=== PATIENT | male | born 1985 | race Hispanic/Latino ===

== ENCOUNTER 2019-05-18 05:39 | Emergency (ER) | payer OTHER ==
[2019-05-18] MEDS ORDERED: ONDANSETRON HCL 4 MG/2 ML VIAL ONE (06:09)
[2019-05-18] MEDS ORDERED: MORPHINE SULFATE 4 MG/1ML SYG ONE ×2 (06:10→07:29)
[2019-05-18] MEDS ORDERED: SODIUM CHLORIDE 0.9% 1000ML 1,000 ML IV ONE (06:10)
[2019-05-18 06:13] LABS: BASOPHILS % (AUTO) 0.6 % (0.0-5.0); EOSINOPHILS % (AUTO) 1.3 % (0.0-8.0); HEMATOCRIT 52.7 % (42-54); LYMPHOCYTES % (AUTO) 6.1 % (21.0-51.0); MEAN CORPUSCULAR HEMOGLOBIN 32.4 pg (27.0-33.0); MEAN CORPUSCULAR HGB CONC 34.5 g/dL (32.0-36.0); MEAN CORPUSCULAR VOLUME 93.9 fL (79-99); MONOCYTES % (AUTO) 6.3 % (3.0-13.0); PLATELET COUNT (AUTO) 364 K/uL (130-400); RED BLOOD CELL COUNT(AUTO) 5.61 MIL/uL (4.50-6.20); RED CELL DISTRIBUTION WIDTH 13.3 % (11.0-15.5)
[2019-05-18 06:23] LABS: POTASSIUM 3.8 mmol/L (3.5-5.1)
[2019-05-18 06:28] LABS: ALBUMIN 4.8 g/dL (3.5-5.0); BILIRUBIN,TOTAL 0.7 mg/dL (0.2-1.0); TOTAL PROTEIN, SERUM 8.3 g/dL (6.0-8.3)
[2019-05-18 06:42] LABS: WHITE BLOOD COUNT (AUTO) 31.8 K/uL (4.8-10.8)
[2019-05-18 07:13] LABS: APPEARANCE,URINE Clear (CLEAR); BILIRUBIN,URINE Negative (NEGATIVE); COLOR,URINE Yellow (YELLOW); GLUCOSE, URINE (UA) TRACE mg/dL (NEGATIVE); KETONES,URINE Trace mg/dL (NEGATIVE); LEUKOCYTE ESTERASE ,URINE Negative (NEGATIVE); NITRATE,URINE Negative (NEGATIVE); OCCULT BLOOD,URINE Negative (NEGATIVE); PROTEIN,URINE Trace mg/dL (NEGATIVE)
[2019-05-18 07:14] LABS: AMPHET/METH SCREEN,URINE NEGATIVE (NEGATIVE); BARBITURATE SCREEN, URINE NEGATIVE (NEGATIVE); BENZODIAZEPINES SCREEN,URINE NEGATIVE (NEGATIVE); CANNABINOID SCREEN,URINE POSITIVE (NEGATIVE); COCAINE SCREEN,URINE NEGATIVE (NEGATIVE); OPIATE SCREEN,URINE POSITIVE (NEGATIVE); PHENCYCLIDINE SCREEN,URINE NEGATIVE (NEGATIVE)
[2019-05-18 07:37] LABS: BACTERIA,URINE Moderate /HPF (None Seen); MUCUS,URINE Many LPF (None Seen); RBC,URINE 0-1 /HPF (0-1); SQUAMOUS EPITHELIAL CELL,UR Rare /HPF (0-2)
[2019-05-18 07:50] LABS: BAND NEUTROPHILS % (MANUAL) 1 % (0-2); EOSINOPHILS % (MANUAL) 1 % (1-6); LYMPHOCYTES % (MANUAL) 9 % (22-44); MAN.DIFF COMMENT-IMPRESSION MANUAL DIFFERENTIAL; MONOCYTES % (MANUAL) 2 % (2-9); PLATELET MORPHOLOGY COMMENT ADEQUATE; REACTIVE LYMPHOCYTES 1 % (0-0); SEGMENTED NEUTROPHILS % 86 % (40-70)
== END 2019-05-18 09:19 | disposition home or self-care (01) ==
LOC: EDH 05:39 → EDBD 05:39 → EDH 09:19
DX: F12.20 Cannabis dependence, uncomplicated (principal); R11.10 Vomiting, unspecified; Z90.49 Acquired absence of other specified parts of digestive tract
CPT/HCPCS: 36415; 74176; 80053; 80305; 81001; 83690; 85025; 96361; 96372; 96374; 96375; 96376; 99285; G0480; J2270 ×2; J2405; J7030

== ENCOUNTER 2019-10-01 00:44 | Emergency (ER) | payer SELFPAY ==
[2019-10-01] MEDS ORDERED: ORPHENADRINE CITRATE 30 MG/ML ML ONE (02:03)
[2019-10-01] MEDS ORDERED: HYDROCODONE/ACETAMINOPHEN 5/325 MG TAB ONE (02:03)
[2019-10-01] MEDS ORDERED: KETOROLAC TROMETHAMINE 60 MG/2 ML VIAL ONE (02:03)
[2019-10-01] MEDS ORDERED: TETANUS/DIPHTHERIA TOXOID [ADULT] 0.5 ML VIAL IM ONE (02:04)
[2019-10-01] MEDS ORDERED: ERYTHROMYCIN BASE 0.5% OPHTH OINT 1 GM TUBE ONE (03:38)
[2019-10-01] MEDS ORDERED: ACETAMINOPHEN-CODEINE 300/30MG TAB ONE (03:39)
[2019-10-01] MEDS ORDERED: ONDANSETRON ODT 4 MG TAB ONE (03:39)
== END 2019-10-01 03:57 | disposition home or self-care (01) ==
LOC: EDH 00:44
DX: S01.112A Laceration without foreign body of left eyelid and periocular area, initial encounter (principal); S20.212A Contusion of left front wall of thorax, initial encounter; Z72.0 Tobacco use; Z90.49 Acquired absence of other specified parts of digestive tract; Y04.2XXA Assault by strike against or bumped into by another person, initial encounter; Y93.89 Activity, other specified; Y92.89 Other specified places as the place of occurrence of the external cause; Y99.8 Other external cause status
CPT/HCPCS: 12011; 70450; 70486; 71101; 90471; 90714; 96372 ×2; 99285; J1885; J2360

== ENCOUNTER 2020-06-18 22:33 | Emergency (ER) | payer OTHER ==
[2020-06-18] MEDS ORDERED: ONDANSETRON HCL 4 MG/2 ML VIAL ONE (22:47)
[2020-06-18 22:53] LABS: BASOPHILS % (AUTO) 0.5 % (0.0-5.0); HEMATOCRIT 51.1 % (42-54); LYMPHOCYTES % (AUTO) 6.1 % (21.0-51.0); MEAN CORPUSCULAR HEMOGLOBIN 33.5 pg (27.0-33.0); MEAN CORPUSCULAR HGB CONC 35.8 g/dL (32.0-36.0); MEAN CORPUSCULAR VOLUME 93.4 fL (79-99); MONOCYTES % (AUTO) 5.4 % (3.0-13.0); NEUTROPHILS % (AUTO) 87.5 % (40.0-77.0); PLATELET COUNT (AUTO) 416 K/uL (130-400); RED BLOOD CELL COUNT(AUTO) 5.47 MIL/uL (4.50-6.20); RED CELL DISTRIBUTION WIDTH 12.7 % (11.0-15.5); WHITE BLOOD COUNT (AUTO) 25.6 K/uL (4.8-10.8)
[2020-06-18] MEDS ORDERED: FAMOTIDINE/PF 20 MG/2 ML VIAL IV ONE (23:12)
[2020-06-18] MEDS ORDERED: DiphenhydrAMINE HCL 50 MG/ML VIAL ONE (23:12)
[2020-06-18] MEDS ORDERED: SODIUM CHLORIDE 0.9% 1000ML 1,000 ML IV ONE (23:12)
[2020-06-18] MEDS ORDERED: HALOPERIDOL LACTATE 5 MG/ML VIAL ONE (23:12)
[2020-06-18 23:50] LABS: CREATININE 1.2 mg/dL (0.5-1.5); POTASSIUM 3.9 mmol/L (3.5-5.1)
[2020-06-18 23:54] LABS: BILIRUBIN,TOTAL 0.4 mg/dL (0.2-1.0); TOTAL PROTEIN, SERUM 8.5 g/dL (6.0-8.3)
== END 2020-06-19 01:28 | disposition home or self-care (01) ==
LOC: EDH 22:33
DX: E86.0 Dehydration (principal); R10.13 Epigastric pain; R11.2 Nausea with vomiting, unspecified; Z90.49 Acquired absence of other specified parts of digestive tract
CPT/HCPCS: 36415; 80053; 83605; 83690; 85025; 93005; 96361; 96372; 96374; 96375; 99284; J1200; J1630; J2405; J3490; J7030